=== PATIENT | male | born 1985 | race African-American/Black ===

== ENCOUNTER → 2024-04-03 | Outpatient (REF) | payer MEDICARE | LOC: RAD 13:30 | PROVIDERS: ATTEND Family Medicine | DX: M25.562 Pain in left knee (principal); M25.561 Pain in right knee; W19.XXXA Unspecified fall, initial encounter ==

== ENCOUNTER → 2024-04-26 | Outpatient (REF) | payer MEDICARE | LOC: MRI 10:00 | PROVIDERS: ATTEND Family Medicine | DX: M25.562 Pain in left knee (principal); M25.561 Pain in right knee ==